=== PATIENT | female | born 1945 | race Caucasian/White ===

== ENCOUNTER 2020-03-02 16:09 | Emergency (ER) | payer MEDICARE, OTHER ==
[~2020-03-02] VITALS: Ht 162.6 cm; Wt 81.7 kg
--- OUTSIDE RECORDS SUMMARY | 2020-03-02 16:18 | XMS ---
PreManage Notification: STEPHIE FREDERICK [employer] Manager Events No recent Security Events currently on file CRITERIA MET - [facility] CARE PROVIDERS There are no care providers on record at this time. Elidia has no Care Guidelines for this patient. Sil VISIT COUNT (12 MO.) 1 DARREL Dorado TOTAL 1 NOTE: Visits indicate total known visits. ED/UCC VISIT TRACKING (12 MO.) 03/02/2020 16:15 DARREL Lu OR TYPE: Emergency COMPLAINT: - WEAKNESS, LOSS OF APPETITE INPATIENT VISIT TRACKING (12 MO.) No inpatient visits to display in this time frame [email or web address]
[2020-03-02] MEDS ORDERED: LYRICA100 MG PO (16:28)
[2020-03-02] MEDS ORDERED: CLOPIDOGREL75 MG PO (16:57)
[2020-03-02] MEDS ORDERED: ATORVASTATIN CA80 MG PO (16:57)
[2020-03-02] MEDS ORDERED: METOPROLOL TART50 MG PO (16:58)
[2020-03-02] MEDS ORDERED: LOSARTAN POTASS50 MG PO (16:58)
[2020-03-02] MEDS ORDERED: LEVOTHYROXINE175 MCG PO (16:59)
[2020-03-02] MEDS ORDERED: TRAMADOL HCL50 MG PO (16:59)
[2020-03-02] MEDS ORDERED: FAMOTIDINE10 MG PO (17:00)
== END 2020-03-02 19:34 | disposition home or self-care (01) ==
LOC: ED 16:09
DX: R10.13 Epigastric pain (principal); I25.2 Old myocardial infarction; I10 Essential (primary) hypertension; F32.9 Major depressive disorder, single episode, unspecified; E78.00 Pure hypercholesterolemia, unspecified; Z88.8 Allergy status to other drugs, medicaments and biological substances; Z79.899 Other long term (current) drug therapy
CPT/HCPCS: 80053; 81001; 83690; 83735; 85025; 96374; 96375; 99284-25; C9113; J2405; U0002